=== PATIENT | male | born 2000 | race Caucasian/White ===

== ENCOUNTER 2023-07-22 20:30 | Emergency (ER) | payer OTHER, SELFPAY ==
[2023-07-22 20:52] VITALS: BP 123/93; PULSE 72; RESP 16; TEMP 36.4; O2SAT 98; BMI 23.4
--- NOTE | 2023-07-22 20:59 | XR_ITS ---
Patient: HOLLIS SANCHEZ Facility:?[facility] Patient ID:?[id number] Site Patient ID:?[id number] Site :?1998 Study:?XRay-Extremity Left THUMB 3V-07/22/2023 9:43:27 PM Ordering Physician:VITO Final Report: Indication: Band saw injury, evaluate for bone involvement. Technique: Three views of the left thumb. Comparison: None Findings/Impression: Slight cortical irregularity at the palmar aspect of the 1st digit distal phalanx, worrisome for a subtle nondisplaced fracture. No evidence of intra- articular involvement. Soft tissue laceration noted at the palmar aspect of the thumb. Dictated by Graciela Sutton MD @ 07/22/2023 10:02:29 PM Signed by:?Graciela Sutton MD @07/22/2023 10:02:29 PM (Electronic Signature)
--- NOTE | 2023-08-21 08:38 | ED_ITS ---
HPI - General Adult General Chief complaint: Laceration/Wound Stated complaint: laceration on L thumb Time Seen by Provider: 07/22/23 20:53 History of Present Illness HPI narrative: Patient c/o left thumb injury at 1920 today. Patient was using a belt maker and cut his thumb while at work. Bleeding controlled. Last tetanus 2020. 23-year-old man presenting to the emergency department with significant other with concern of laceration to his thumb. Seems to have caught this of the edge of a standing belt. Was concerned about particulate within. Has managed to control the bleeding. Occurred a little over an hour prior to arrival in the emergency department. It sounds like is sensitive to seeing his own blood. Has had surgery of right thumb. Related Data Home Medications ?Medication ?Instructions ?Recorded ?Confirmed No Known Home Medications 02/05/23 02/05/23 Allergies Allergy/AdvReac Type Severity Reaction Status Date / Time No Known Drug Allergies Allergy Verified 02/05/23 13:30 Review of Systems Status of ROS: Reports: 6 or more systems reviewed and unremarkable except as noted in History and below [facility] Medical History Asthma ?J45.909 - Unspecified asthma, uncomplicated (ICD-10) Surgical History History of thumb surgery ?Z98.890 - Other specified postprocedural states (ICD-10) Social History What is your current living situation?: I presently have a place to live Problems where you live: no known problems In the past 12 months, utilities in danger of being shut off: no In past 12 months, lack of transportation kept you from medical appts, meetings, work, or getting things needed for daily living: no In the past 12 mos, have been you worried that your food would run out before you had money to buy more?: never true In the past 12 mos, the food you bought just didn't last and you didn't have money to buy more?: never true How often does anyone, including family, friends and others, physically hurt you : never How often does anyone, including family, friends and others, insult or talk down to you: never How often does anyone, including family, friends and others, threaten you with harm: never How often does anyone, including family, friends and others, scream or curse at you: never Little interest or pleasure in doing things: not at all Feeling down, depressed, or hopeless: several days Exam Narrative: Exam Narrative: Pleasant. NAD. Removing dressing of the left hand reveals palmar to radial side laceration of the left thumb nearly 2 cm in length. Full dermal. Not involving the nail. No other injuries sustained. It is deep. Bleeds when manipulated. Const: Documenting provider has reviewed patient's vital signs: yes Course Vital Signs Vital signs: Initial Vital Signs Temperature 97.6 F 07/22/23 20:52 Temperature Source Temporal Artery Scan 07/22/23 20:52 Pulse Rate 72 07/22/23 20:52 Respiratory Rate 16 07/22/23 20:52 Blood Pressure 123/93 H 07/22/23 20:52 Blood Pressure Mean 103 07/22/23 20:52 Blood Pressure Position Sitting 07/22/23 20:52 Pulse Oximetry 98 07/22/23 20:52 Oxygen Delivery Method Room Air 07/22/23 20:52 Vital Signs Temperature 97.6 F 07/22/23 20:52 Pulse Rate 72 07/22/23 20:52 Respiratory Rate 16 07/22/23 20:52 Blood Pressure 123/93 H 07/22/23 20:52 Pulse Oximetry 98 07/22/23 20:52 Oxygen Delivery Method Room Air 07/22/23 20:52 Temperature 97.6 F 07/22/23 20:52 Pulse Rate 72 07/22/23 20:52 Respiratory Rate 16 07/22/23 20:52 Blood Pressure 123/93 H 07/22/23 20:52 Pulse Oximetry 98 07/22/23 20:52 Oxygen Delivery Method Room Air 07/22/23 20:52 Medical Decision Making MDM Narrative Medical decision making narrative: I do have concern of potential bony involvement or at least adjacent to the bone here. I would would do an x-ray. Anesthetized the thumb with a ring block with Marcaine. Excellent wound anesthesia achieved. Cleansed with Hibiclens and water solution X-ray of the left thumb reviewed by me -- palmar laceration. May have just nicked the bone here. Spend some time further cleaning the wound, removed some abraded tissue. Closed with combination of horizontal mattress and interrupted Ethilon sutures. A believe a total of 7 Well-approximated wound. Control of bleeding. Given bony or near bony involvement I would offer antibiotic prophylaxis. See patient discharge plan for further discussion Discharge Plan Discharge Clinical Impression: Laceration of thumb Patient Disposition: Home w/ Parent or Adult Condition: Improved Additional Instructions: I would take some ibuprofen yet tonight. Can take up to 800 mg of ibuprofen or up to 1000 mg of acetaminophen per dose. Alternative to the ibuprofen might be up to 500 mg naproxen 2 times daily. Elevate for comfort otherwise. sutures out in 8-10 days. antibiotic ointment for 4-5 days and then to a dry dressing. ok to get wet but try not to soak while sutures are in. Watch for spreading redness after 2 days accompanied by heat, swelling, marked increase in pain, purulent drainage. Since we have concerns that you might have nicked the bone, I'd like to give you an antibiotic for 5 days as well. Cephalexin from [facility]. Prescriptions: No Action No Known Home Medications Follow Up/Referrals: Dillon Brooks MD [Primary Care Provider] - Stand Alone Forms: [employer]th Info Instructions
== END 2023-07-22 23:56 | disposition home or self-care (01) ==
PROVIDERS: Emergency Provider Family Medicine; PCP Family Medicine
DX: S61.012A Laceration without foreign body of left thumb without damage to nail, initial encounter (principal); W31.2XXA Contact with powered woodworking and forming machines, initial encounter
CPT/HCPCS: 12001; 73140; 99283